=== PATIENT | male | born 1995 | race Caucasian/White ===

== ENCOUNTER 2018-01-25 13:09 | Emergency (ER) | payer BC, SELFPAY ==
[~2018-01-25 13:09] MED LIST: ISOVUE-370 76%-LOCM 1 ML ONE
[2018-01-25 13:45] LABS: #Lymphocytes 1.4 thou/uL (1.20-3.40); #Monocytes 0.4 thou/uL (0.11-0.59); #Neutrophils 5.4 thou/uL (1.40-6.50); %Basophils 0.2 % (0.0-1.0); %Eosinophils 0.2 % (0.0-10.0); %Lymphocytes 18.9 % (21.0-51.0); %Monocytes 4.9 % (0.0-10.0); %Neutrophils 75.8 % (42.0-75.0); Hemoglobin 15.2 g/dL (14.0-18.0); Mean Corpuscular HGB CONC 33.9 g/dL (32.0-36.0); Mean Corpuscular Hemoglobin 29.8 pg (27.0-31.0); Platelet Count 213 thou/uL (130-400); RBC Distribution Width 11.7 % (11.5-14.5); Red Blood Cell (RBC) Count 5.09 mill/uL (4.70-6.10); White Blood Cell (WBC) Count 7.1 thou/uL (4.8-10.8)
[2018-01-25 14:10] LABS: ALT (SGPT) 19 U/L (8-55); AST (SGOT) 25 U/L (5-34); Albumin 5.2 g/dL (3.5-5.0); Alkaline Phosphatase 86 U/L (40-150); Anion Gap 15 mmol/L (10-20); BUN (Urea Nitrogen) 18 mg/dL (8.9-20.6); Bilirubin, Total 0.5 mg/dL (0.2-1.2); Calc. Creatinine Clearance 0 mL/min (70-130); Calcium 10.1 mg/dL (7.8-10.44); Carbon Dioxide 24 mmol/L (22-29); Chloride 101 mmol/L (98-107); Estimated GFR-MDRD 80; Globulin 2.9 g/dL (2.4-3.5); Glucose 97 mg/dL (70-105); Potassium 3.9 mmol/L (3.5-5.1); Protein, Total 8.1 g/dL (6.0-8.3); Sodium 136 mmol/L (136-145)
[2018-01-25] MEDS ORDERED: methylPREDNISolone Sod Succ/PF 125 MG/2 ML VIAL ONE (15:28)
[2018-01-25] MEDS ORDERED: Ketorolac Tromethamine 30 MG/ML VIAL ONE (15:28)
--- NOTE | 2018-01-25 15:40 | CT ---
CT ANGIOGRAM OF THE HEAD WITH AND WITHOUT CONTRAST: Date: 01/25/18 Time: 2:24 p.m. HISTORY: 22-year-old male with acute headache, visual disturbance (blurry vision). Family history of Chiari ma lformation. TECHNIQUE: Standard precontrast brain CT performed at 5 mm slices. Next, 100 mL of Isovue 370 injected, and thin slice scan performed from craniocervical junction to vertex of head. Coronal and sagittal 3D MIP rec onstructions. FINDINGS: The ventricles are normal in size and configuration. No evidence of acute intra-axial or extra-axial hemorrhage, mass effect, midline shift or extra-axial fluid collection. No abnormal intra-axial hypod ensities. No osseous abnormality of the skull. The visualized portions of the paranasal sinuses, and the bilateral tympanomastoid cavities, are grossly clear. There is no Chiari I malformation. Anterior and posterior circulation arteries are of normal caliber, with no evidence of high grade stenosis, occlusion, or aneurysm. There is no AVM. There is demonstra tion of blood flow in all of the dural venous sinuses, with the possible exception of the left transv erse sinus. The left sigmoid sinus is small. The left jugular bulb is small. Both of these structures have contrast enhancement. There is a small amount of contrast enhancement within what is probably a very thin, hypoplastic left transverse sinus. This is unlikely to represent a thrombosis of the left transverse sinus. IMPRESSION: 1. 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 2. Otherwise normal. POS: [facility]
== END 2018-01-25 16:28 | disposition home or self-care (01) ==
LOC: ERS 13:09
DX: R51 Headache (principal)
CPT/HCPCS: 36415; 70496; 80053; 85025; 96374; 96375; J1885; J2930